=== PATIENT | male | born 1965 | race African-American/Black ===

== ENCOUNTER 2020-09-19 13:50 | Inpatient (IN) | payer OTHER ==
[2020-09-19 14:37] VITALS: BMI 30.7
[2020-09-19] MEDS ORDERED: guaiFENesin 200 MG/10 ML 10 ML UNIT-DOSE CUPS PO PRN (20:11)
[2020-09-19] MEDS ORDERED: LOPERAMIDE HCL 2 MG CAPSULE PO PRN (20:11)
[2020-09-19] MEDS ORDERED: MAGNESIUM CITRATE 300 ML BOTTLE PO PRN (20:11)
[2020-09-19] MEDS ORDERED: ACETAMINOPHEN 325 MG TABLET (FP) PO PRN (20:11)
[2020-09-19] MEDS ORDERED: MENTHOL/PHENOL 1 EACH UD MM PRN (20:11)
[2020-09-19] MEDS ORDERED: hydrOXYzine PAMOATE 25 MG CAPSULE (FP) PO PRN (20:11)
[2020-09-19] MEDS ORDERED: P-EPHED 60MG/TRIPROLIDI 2.5MG TABLET PO PRN (20:11)
[2020-09-19] MEDS ORDERED: MAGNESIUM HYDROX 2400MG/30ML ORAL SUSPENSION 30 ML CUP PO PRN (20:11)
[2020-09-19] MEDS ORDERED: IBUPROFEN 400 MG TABLET (FP) PO PRN (20:11)
[2020-09-19] MEDS ORDERED: MAG HYDROX/AL HYDROX/SIMETH 30 ML UNIT-DOSE CUP PO PRN (20:11)
[2020-09-19] MEDS ORDERED: TUBERCULIN PPD 5 TU/0.1ML VIAL ID ONE ×2 (21:56→22:18)
[2020-09-19] MEDS ORDERED: MASKS NR ONE (22:10)
[2020-09-19] MEDS: THIAMINE HCL 100 MG TABLET (FP) PO SCH (22:16)
[2020-09-19] MEDS: MELATONIN 5 MG TABLETS PO SCH (22:16)
[2020-09-20] MEDS: PRENATAL VITAMINS W/ FOLIC ACID TABLET (FP) PO SCH (09:50)
[2020-09-20] MEDS ORDERED: cloNIDine HCL 0.1 MG TABLET PO PRN (10:49)
[2020-09-20] MEDS: cloNIDine HCL 0.1 MG TABLET PO PRN (12:21)
[2020-09-21] MEDS: PRENATAL VITAMINS W/ FOLIC ACID TABLET (FP) PO SCH (09:24)
[2020-09-21] MEDS: ARIPiprazole 5 MG TABLET PO SCH (09:24)
[2020-09-21] MEDS: FLUoxetine HCL 10 MG TABLET PO SCH (09:24)
[2020-09-21 10:13] LABS: HEMATOCRIT 46.1 % (35.4-49); MCH 30.8 pg (25.7-33.7); MCHC 34.7 g/dl (32.0-35.9); MEAN CELL VOLUME 88.6 fl (80-96); MEAN PLT VOLUME 8.6 fl (7.5-11.1); PLATELET COUNT 253 K/MM3 (134-434); RBC 5.21 M/mm3 (4.00-5.60); RDW 13.5 % (11.9-15.9)
[2020-09-21 10:14] LABS: ALBUMIN 3.6 g/dl (3.4-5.0); CALCIUM 9.1 mg/dL (8.5-10.1)
[2020-09-21 10:15] LABS: BLOOD UREA NITROGEN 6.4 mg/dL (7-18)
[2020-09-21 10:16] LABS: BILIRUBIN,TOTAL 0.3 mg/dL (0.2-1); TOT PROT 7.4 g/dl (6.4-8.2)
[2020-09-21 10:19] LABS: CREATININE 0.9 mg/dL (0.55-1.3)
[2020-09-21] MEDS: ATORVASTATIN CA 40 MG TABLET (FP) PO SCH ×2 (22:56)
[2020-09-21] MEDS: DIVALPROEX NA *ER* EXTEND REL 500 MG TABLET.SA (FP) PO SCH ×2 (22:56)
[2020-09-21] MEDS: MELATONIN 5 MG TABLETS PO SCH ×2 (22:56)
[2020-09-21] MEDS: GABAPENTIN 100 MG CAPSULE PO SCH ×2 (22:57)
[2020-09-21] MEDS: THIAMINE HCL 100 MG TABLET (FP) PO SCH ×2 (22:57)
[2020-09-22] MEDS ORDERED: PT OWN MED DRAWER 7, Y5N ONE (08:12)
[2020-09-22] MEDS: ARIPiprazole 5 MG TABLET PO SCH (09:16)
[2020-09-22] MEDS: FLUoxetine HCL 10 MG TABLET PO SCH (09:16)
[2020-09-22] MEDS: PRENATAL VITAMINS W/ FOLIC ACID TABLET (FP) PO SCH (09:16)
[2020-09-22] MEDS: ATORVASTATIN CA 40 MG TABLET (FP) PO SCH (21:27)
[2020-09-22] MEDS: THIAMINE HCL 100 MG TABLET (FP) PO SCH (21:27)
[2020-09-22] MEDS: MELATONIN 5 MG TABLETS PO SCH (21:27)
[2020-09-22] MEDS: DIVALPROEX NA *ER* EXTEND REL 500 MG TABLET.SA (FP) PO SCH (21:27)
[2020-09-22] MEDS: GABAPENTIN 100 MG CAPSULE PO SCH (21:27)
[2020-09-23] MEDS ORDERED: PT OWN MED DRAWER 7, Y5N ONE (09:29)
[2020-09-23] MEDS: ARIPiprazole 5 MG TABLET PO SCH (09:42)
[2020-09-23] MEDS: cloNIDine HCL 0.1 MG TABLET PO PRN (09:43)
[2020-09-23] MEDS: FLUoxetine HCL 10 MG TABLET PO SCH (09:43)
[2020-09-23] MEDS: PRENATAL VITAMINS W/ FOLIC ACID TABLET (FP) PO SCH (09:43)
[2020-09-23 15:44] LABS: EPI CELLS 1 /uL (0-25.1); HYALINE CASTS 0 /uL (0-3.1); PH,URINE 5.5 (5.0-8.0); URINE APPEARANCE CLEAR; URINE BACTERIA 14 /uL (0-1359); URINE BILIRUBIN NEGATIVE (NEGATIVE); URINE COLOR YELLOW; URINE GLUCOSE (UA) NEGATIVE (NEGATIVE); URINE KETONE NEGATIVE (NEGATIVE); URINE LEUK ESTERASE NEGATIVE (NEGATIVE); URINE NITRITE NEGATIVE (NEGATIVE); URINE PROTEIN NEGATIVE (NEGATIVE); URINE RBC 16 /uL (0-23.9); URINE UROBILINOGEN 0.2 mg/dL (0.2-1.0); URINE WBC 2 /uL (0-25.8)
[2020-09-23] MEDS: GABAPENTIN 100 MG CAPSULE PO SCH (21:45)
[2020-09-23] MEDS: THIAMINE HCL 100 MG TABLET (FP) PO SCH (21:45)
[2020-09-23] MEDS: DIVALPROEX NA *ER* EXTEND REL 500 MG TABLET.SA (FP) PO SCH (21:45)
[2020-09-23] MEDS: MELATONIN 5 MG TABLETS PO SCH (21:45)
[2020-09-23] MEDS: ATORVASTATIN CA 40 MG TABLET (FP) PO SCH (21:45)
[2020-09-24] MEDS ORDERED: PT OWN MED DRAWER 7, Y5N ONE (09:08)
[2020-09-24] MEDS: PRENATAL VITAMINS W/ FOLIC ACID TABLET (FP) PO SCH (10:02)
[2020-09-24] MEDS: FLUoxetine HCL 10 MG TABLET PO SCH (10:02)
[2020-09-24] MEDS: ARIPiprazole 5 MG TABLET PO SCH (10:02)
[2020-09-24] MEDS: cloNIDine HCL 0.1 MG TABLET PO PRN (10:04)
[2020-09-24] MEDS: MELATONIN 5 MG TABLETS PO SCH (21:23)
[2020-09-24] MEDS: DIVALPROEX NA *ER* EXTEND REL 500 MG TABLET.SA (FP) PO SCH (21:23)
[2020-09-24] MEDS: ATORVASTATIN CA 40 MG TABLET (FP) PO SCH (21:23)
[2020-09-24] MEDS: GABAPENTIN 100 MG CAPSULE PO SCH (21:24)
[2020-09-24] MEDS: THIAMINE HCL 100 MG TABLET (FP) PO SCH (21:24)
[2020-09-25 06:06] LABS: SARS-CoV-2 NAA Not Detected (Not Detected)
[2020-09-25] MEDS ORDERED: PT OWN MED DRAWER 7, Y5N ONE ×2 (08:57→21:05)
[2020-09-25] MEDS: ARIPiprazole 5 MG TABLET PO SCH (09:57)
[2020-09-25] MEDS: PRENATAL VITAMINS W/ FOLIC ACID TABLET (FP) PO SCH (09:57)
[2020-09-25] MEDS: FLUoxetine HCL 10 MG TABLET PO SCH (09:57)
[2020-09-25] MEDS: ATORVASTATIN CA 40 MG TABLET (FP) PO SCH (21:04)
[2020-09-25] MEDS: GABAPENTIN 100 MG CAPSULE PO SCH (21:04)
[2020-09-25] MEDS: THIAMINE HCL 100 MG TABLET (FP) PO SCH (21:04)
[2020-09-25] MEDS: DIVALPROEX NA *ER* EXTEND REL 500 MG TABLET.SA (FP) PO SCH (21:06)
[2020-09-26] MEDS: PRENATAL VITAMINS W/ FOLIC ACID TABLET (FP) PO SCH (09:53)
[2020-09-26] MEDS ORDERED: COLLOIDAL OATMEAL 1 BAR EACH TP PRN (10:54)
[2020-09-26] MEDS: ATORVASTATIN CA 40 MG TABLET (FP) PO SCH (21:46)
[2020-09-26] MEDS: GABAPENTIN 100 MG CAPSULE PO SCH (21:46)
[2020-09-26] MEDS: THIAMINE HCL 100 MG TABLET (FP) PO SCH (21:46)
[2020-09-26] MEDS: DIVALPROEX NA *ER* EXTEND REL 500 MG TABLET.SA (FP) PO SCH (21:46)
[2020-09-26] MEDS: cloNIDine HCL 0.1 MG TABLET PO SCH (21:51)
[2020-09-27] MEDS: PRENATAL VITAMINS W/ FOLIC ACID TABLET (FP) PO SCH (09:43)
[2020-09-27] MEDS: cloNIDine HCL 0.1 MG TABLET PO SCH ×2 (09:43→21:18)
[2020-09-27] MEDS: GABAPENTIN 100 MG CAPSULE PO SCH (21:18)
[2020-09-27] MEDS: ATORVASTATIN CA 40 MG TABLET (FP) PO SCH (21:18)
[2020-09-27] MEDS: THIAMINE HCL 100 MG TABLET (FP) PO SCH (21:18)
[2020-09-27] MEDS: DIVALPROEX NA *ER* EXTEND REL 500 MG TABLET.SA (FP) PO SCH (21:19)
[2020-09-28] MEDS: cloNIDine HCL 0.1 MG TABLET PO SCH ×2 (09:40→21:13)
[2020-09-28] MEDS: PRENATAL VITAMINS W/ FOLIC ACID TABLET (FP) PO SCH (09:40)
[2020-09-28] MEDS: THIAMINE HCL 100 MG TABLET (FP) PO SCH (21:13)
[2020-09-28] MEDS: GABAPENTIN 100 MG CAPSULE PO SCH (21:13)
[2020-09-28] MEDS: ATORVASTATIN CA 40 MG TABLET (FP) PO SCH (21:13)
[2020-09-28] MEDS: DIVALPROEX NA *ER* EXTEND REL 500 MG TABLET.SA (FP) PO SCH (21:14)
[2020-09-29] MEDS: PRENATAL VITAMINS W/ FOLIC ACID TABLET (FP) PO SCH (09:51)
[2020-09-29] MEDS: cloNIDine HCL 0.1 MG TABLET PO SCH ×2 (09:51→21:48)
[2020-09-29] MEDS: THIAMINE HCL 100 MG TABLET (FP) PO SCH (21:48)
[2020-09-29] MEDS: ATORVASTATIN CA 40 MG TABLET (FP) PO SCH (21:48)
[2020-09-29] MEDS: DIVALPROEX NA *ER* EXTEND REL 500 MG TABLET.SA (FP) PO SCH (21:48)
[2020-09-29] MEDS: GABAPENTIN 100 MG CAPSULE PO SCH (21:48)
[2020-09-30] MEDS: cloNIDine HCL 0.1 MG TABLET PO SCH ×2 (09:43→21:25)
[2020-09-30] MEDS: PRENATAL VITAMINS W/ FOLIC ACID TABLET (FP) PO SCH (09:44)
[2020-09-30] MEDS: ATORVASTATIN CA 40 MG TABLET (FP) PO SCH (21:25)
[2020-09-30] MEDS: THIAMINE HCL 100 MG TABLET (FP) PO SCH (21:25)
[2020-09-30] MEDS: DIVALPROEX NA *ER* EXTEND REL 500 MG TABLET.SA (FP) PO SCH (21:26)
[2020-09-30] MEDS: GABAPENTIN 100 MG CAPSULE PO SCH (21:26)
[2020-10-01] MEDS: PRENATAL VITAMINS W/ FOLIC ACID TABLET (FP) PO SCH (09:56)
[2020-10-01] MEDS: cloNIDine HCL 0.1 MG TABLET PO SCH ×2 (09:56→21:23)
[2020-10-01] MEDS ORDERED: PT OWN MED DRAWER 7, Y5N ONE (19:32)
[2020-10-01] MEDS: GABAPENTIN 100 MG CAPSULE PO SCH (21:23)
[2020-10-01] MEDS: THIAMINE HCL 100 MG TABLET (FP) PO SCH (21:23)
[2020-10-01] MEDS: ATORVASTATIN CA 40 MG TABLET (FP) PO SCH (21:23)
[2020-10-01] MEDS: DIVALPROEX NA *ER* EXTEND REL 500 MG TABLET.SA (FP) PO SCH (21:23)
[2020-10-02] MEDS: PRENATAL VITAMINS W/ FOLIC ACID TABLET (FP) PO SCH (09:48)
[2020-10-02] MEDS: cloNIDine HCL 0.1 MG TABLET PO SCH ×2 (09:48→21:42)
[2020-10-02 10:07] LABS: BASO % 0.5 % (0-2.0); EOS % 3.9 % (0-4.5); HEMATOCRIT 44.5 % (35.4-49); HEMOGLOBIN 15.4 GM/dL (11.7-16.9); LYMPH % 43.5 % (8-40); MCH 30.4 pg (25.7-33.7); MCHC 34.6 g/dl (32.0-35.9); MEAN PLT VOLUME 8.7 fl (7.5-11.1); MONO % 8.3 % (3.8-10.2); NEUT % 43.8 % (42.8-82.8); PLATELET COUNT 242 K/MM3 (134-434); RBC 5.05 M/mm3 (4.00-5.60); RDW 13.2 % (11.9-15.9); WHITE BLOOD COUNT 5.6 K/mm3 (4.0-10.0)
[2020-10-02 10:26] LABS: ALBUMIN 3.6 g/dl (3.4-5.0); CALCIUM 9.4 mg/dL (8.5-10.1)
[2020-10-02 10:28] LABS: BLOOD UREA NITROGEN 9.3 mg/dL (7-18)
[2020-10-02 10:30] LABS: CREATININE 0.9 mg/dL (0.55-1.3)
[2020-10-02 10:32] LABS: BILIRUBIN,TOTAL 0.6 mg/dL (0.2-1)
[2020-10-02 10:33] LABS: TOT PROT 7.4 g/dl (6.4-8.2)
[2020-10-02] MEDS: GABAPENTIN 100 MG CAPSULE PO SCH (21:42)
[2020-10-02] MEDS: ATORVASTATIN CA 40 MG TABLET (FP) PO SCH (21:42)
[2020-10-02] MEDS: THIAMINE HCL 100 MG TABLET (FP) PO SCH (21:42)
[2020-10-02] MEDS: DIVALPROEX NA *ER* EXTEND REL 500 MG TABLET.SA (FP) PO SCH (21:44)
[2020-10-03 07:02] VITALS: TEMP 97.3
[2020-10-03] MEDS ORDERED: MASKS NR ONE (08:31)
[2020-10-03 09:30] VITALS: BP 136/84; PULSE 90
[2020-10-03] MEDS: PRENATAL VITAMINS W/ FOLIC ACID TABLET (FP) PO SCH (09:35)
[2020-10-03] MEDS: cloNIDine HCL 0.1 MG TABLET PO SCH (09:35)
== END 2020-10-03 09:40 | disposition home or self-care (01) | DRG 772 ==
LOC: YASAS 13:50 → Y3E 20:10
PROVIDERS: ADMIT Allergy & Immunology; ATTEND Allergy & Immunology
PROC: HZ42ZZZ Group Counseling for Substance Abuse Treatment, Cognitive-Behavioral (ICD-10-PCS; principal; 2020-09-19)
DX: F10.20 Alcohol dependence, uncomplicated (principal); F14.20 Cocaine dependence, uncomplicated; F12.20 Cannabis dependence, uncomplicated; F31.9 Bipolar disorder, unspecified; F43.10 Post-traumatic stress disorder, unspecified; F41.9 Anxiety disorder, unspecified; I10 Essential (primary) hypertension; E78.5 Hyperlipidemia, unspecified; R94.5 Abnormal results of liver function studies; Z62.810 Personal history of physical and sexual abuse in childhood; Z86.19 Personal history of other infectious and parasitic diseases; Z86.69 Personal history of other diseases of the nervous system and sense organs
CPT/HCPCS: 36415; 80053; 80164; 81003; 85025; 85027; 86593; 86780; 93005; 93010; C9803; J0735; U0003; U0005

== ENCOUNTER 2021-12-31 09:48 | Inpatient (IN) | payer OTHER ==
[2021-12-31 10:22] VITALS: BMI 31.0
[2021-12-31] MEDS ORDERED: MAG HYDROX/AL HYDROX/SIMETH 30 ML UNIT-DOSE CUP PO PRN (10:49)
[2021-12-31] MEDS ORDERED: ACETAMINOPHEN 325 MG TABLET (FP) PO PRN (10:49)
[2021-12-31] MEDS ORDERED: MAGNESIUM CITRATE 300 ML BOTTLE PO PRN (10:49)
[2021-12-31] MEDS ORDERED: IBUPROFEN 400 MG TABLET (FP) PO PRN (10:49)
[2021-12-31] MEDS ORDERED: MAGNESIUM HYDROX 2400MG/30ML ORAL SUSPENSION 30 ML CUP PO PRN (10:49)
[2021-12-31] MEDS ORDERED: guaiFENesin 200 MG/10 ML 10 ML UNIT-DOSE CUPS PO PRN (10:49)
[2021-12-31] MEDS ORDERED: LOPERAMIDE HCL 2 MG CAPSULE PO PRN (10:49)
[2021-12-31] MEDS ORDERED: P-EPHED 60MG/TRIPROLIDI 2.5MG TABLET PO PRN (10:49)
[2021-12-31] MEDS: PRENATAL VITAMINS W/ FOLIC ACID TABLET (FP) PO SCH (13:46)
[2021-12-31] MEDS: hydrOXYzine PAMOATE 25 MG CAPSULE (FP) PO SCH ×3 (13:46→22:05)
[2021-12-31] MEDS ORDERED: TUBERCULIN PPD 5 TU/0.1ML VIAL ID ONE (14:36)
[2021-12-31 15:19] LABS: HEMATOCRIT 45.2 % (35.4-49); HEMOGLOBIN 15.5 GM/dL (11.7-16.9); MCH 30.2 pg (25.7-33.7); MCHC 34.2 g/dl (32.0-35.9); MEAN CELL VOLUME 88.2 fl (80-96); MEAN PLT VOLUME 8.7 fl (7.5-11.1); PLATELET COUNT 253 10^3/uL (134-434); RBC 5.13 M/mm3 (4.00-5.60); RDW 13.6 % (11.9-15.9); WHITE BLOOD COUNT 4.9 K/mm3 (4.0-10.0)
[2021-12-31 15:37] LABS: ALBUMIN 3.7 g/dl (3.4-5.0); CALCIUM 8.9 mg/dL (8.5-10.1)
[2021-12-31 15:38] LABS: BLOOD UREA NITROGEN 10.1 mg/dL (7-18)
[2021-12-31 15:42] LABS: BILIRUBIN,TOTAL 0.4 mg/dL (0.2-1); CREATININE 0.9 mg/dL (0.55-1.3); TOT PROT 7.4 g/dl (6.4-8.2)
[2021-12-31 17:38] LABS: SYPHILIS W/ RPR CONF REACTIVE (NONREACTIVE)
[2021-12-31 18:45] LABS: PH,URINE 6.5 (5.0-8.0); URINE APPEARANCE CLEAR; URINE BILIRUBIN NEGATIVE (NEGATIVE); URINE COLOR YELLOW; URINE GLUCOSE (UA) NEGATIVE (NEGATIVE); URINE KETONE NEGATIVE (NEGATIVE); URINE LEUK ESTERASE NEGATIVE (NEGATIVE); URINE NITRITE NEGATIVE (NEGATIVE); URINE PROTEIN NEGATIVE (NEGATIVE); URINE UROBILINOGEN 0.2 mg/dL (0.2-1.0)
[2021-12-31] MEDS: THIAMINE HCL 100 MG TABLET (FP) PO SCH (22:05)
[2021-12-31] MEDS: MELATONIN 5 MG TABLETS PO SCH (22:05)
[2022-01-01] MEDS: hydrOXYzine PAMOATE 25 MG CAPSULE (FP) PO SCH ×5 (07:07→22:03)
[2022-01-01] MEDS: PRENATAL VITAMINS W/ FOLIC ACID TABLET (FP) PO SCH (10:44)
[2022-01-01] MEDS: MELATONIN 5 MG TABLETS PO SCH (22:03)
[2022-01-01] MEDS: THIAMINE HCL 100 MG TABLET (FP) PO SCH (22:03)
[2022-01-01] MEDS: ATORVASTATIN CA 40 MG TABLET (FP) PO SCH (22:03)
[2022-01-02] MEDS: hydrOXYzine PAMOATE 25 MG CAPSULE (FP) PO SCH ×5 (07:04→22:37)
[2022-01-02] MEDS: PRENATAL VITAMINS W/ FOLIC ACID TABLET (FP) PO SCH (10:59)
[2022-01-02] MEDS: ATORVASTATIN CA 40 MG TABLET (FP) PO SCH (22:36)
[2022-01-02] MEDS: MELATONIN 5 MG TABLETS PO SCH ×2 (22:36→23:02)
[2022-01-02] MEDS: THIAMINE HCL 100 MG TABLET (FP) PO SCH (22:37)
[2022-01-03] MEDS: hydrOXYzine PAMOATE 25 MG CAPSULE (FP) PO SCH ×4 (06:25→22:01)
[2022-01-03] MEDS: PRENATAL VITAMINS W/ FOLIC ACID TABLET (FP) PO SCH (10:30)
[2022-01-03] MEDS: THIAMINE HCL 100 MG TABLET (FP) PO SCH (22:01)
[2022-01-03] MEDS: MELATONIN 5 MG TABLETS PO SCH (22:01)
[2022-01-03] MEDS: ATORVASTATIN CA 40 MG TABLET (FP) PO SCH (22:01)
[2022-01-04] MEDS: hydrOXYzine PAMOATE 25 MG CAPSULE (FP) PO SCH ×5 (06:53→22:23)
[2022-01-04] MEDS: PRENATAL VITAMINS W/ FOLIC ACID TABLET (FP) PO SCH (10:49)
[2022-01-04] MEDS: MELATONIN 5 MG TABLETS PO SCH (22:23)
[2022-01-04] MEDS: THIAMINE HCL 100 MG TABLET (FP) PO SCH (22:23)
[2022-01-04] MEDS: ATORVASTATIN CA 40 MG TABLET (FP) PO SCH (22:23)
[2022-01-05] MEDS: hydrOXYzine PAMOATE 25 MG CAPSULE (FP) PO SCH ×5 (06:13→21:34)
[2022-01-05] MEDS: PRENATAL VITAMINS W/ FOLIC ACID TABLET (FP) PO SCH (10:30)
[2022-01-05] MEDS: MELATONIN 5 MG TABLETS PO SCH (21:34)
[2022-01-05] MEDS: THIAMINE HCL 100 MG TABLET (FP) PO SCH (21:34)
[2022-01-05] MEDS: ATORVASTATIN CA 40 MG TABLET (FP) PO SCH (21:34)
[2022-01-06] MEDS: hydrOXYzine PAMOATE 25 MG CAPSULE (FP) PO SCH ×3 (06:17→15:02)
[2022-01-06] MEDS: PRENATAL VITAMINS W/ FOLIC ACID TABLET (FP) PO SCH (10:46)
[2022-01-06] MEDS ORDERED: hydrOXYzine PAMOATE 25 MG CAPSULE (FP) PO PRN (15:02)
[2022-01-06] MEDS: ATORVASTATIN CA 40 MG TABLET (FP) PO SCH (21:44)
[2022-01-06] MEDS: MELATONIN 5 MG TABLETS PO SCH (21:44)
[2022-01-06] MEDS: THIAMINE HCL 100 MG TABLET (FP) PO SCH (21:44)
[2022-01-07] MEDS: PRENATAL VITAMINS W/ FOLIC ACID TABLET (FP) PO SCH (10:03)
[2022-01-07] MEDS: ATORVASTATIN CA 40 MG TABLET (FP) PO SCH (21:49)
[2022-01-07] MEDS: MELATONIN 5 MG TABLETS PO SCH (21:49)
[2022-01-07] MEDS: THIAMINE HCL 100 MG TABLET (FP) PO SCH (21:49)
[2022-01-08] MEDS: PRENATAL VITAMINS W/ FOLIC ACID TABLET (FP) PO SCH (10:09)
[2022-01-08] MEDS: THIAMINE HCL 100 MG TABLET (FP) PO SCH (22:53)
[2022-01-08] MEDS: ATORVASTATIN CA 40 MG TABLET (FP) PO SCH (22:53)
[2022-01-08] MEDS: MELATONIN 5 MG TABLETS PO SCH (22:53)
[2022-01-09] MEDS: PRENATAL VITAMINS W/ FOLIC ACID TABLET (FP) PO SCH (09:45)
[2022-01-09] MEDS: ATORVASTATIN CA 40 MG TABLET (FP) PO SCH (22:13)
[2022-01-09] MEDS: THIAMINE HCL 100 MG TABLET (FP) PO SCH (22:13)
[2022-01-09] MEDS: MELATONIN 5 MG TABLETS PO SCH (22:14)
[2022-01-10] MEDS: PRENATAL VITAMINS W/ FOLIC ACID TABLET (FP) PO SCH (10:29)
[2022-01-10] MEDS: THIAMINE HCL 100 MG TABLET (FP) PO SCH (21:22)
[2022-01-10] MEDS: MELATONIN 5 MG TABLETS PO SCH (21:22)
[2022-01-10] MEDS: ATORVASTATIN CA 40 MG TABLET (FP) PO SCH (21:22)
[2022-01-11] MEDS: PRENATAL VITAMINS W/ FOLIC ACID TABLET (FP) PO SCH (10:01)
[2022-01-11] MEDS: ATORVASTATIN CA 40 MG TABLET (FP) PO SCH (22:16)
[2022-01-11] MEDS: THIAMINE HCL 100 MG TABLET (FP) PO SCH (22:16)
[2022-01-11] MEDS: MELATONIN 5 MG TABLETS PO SCH (22:17)
[2022-01-12 07:28] VITALS: BP 144/99; PULSE 79; RESP 18; TEMP 97.3
[2022-01-12] MEDS: PRENATAL VITAMINS W/ FOLIC ACID TABLET (FP) PO SCH (13:22)
== END 2022-01-12 10:03 | disposition home or self-care (01) | DRG 772 ==
LOC: YASAS 09:48 → Y3W 11:43
PROVIDERS: ADMIT Allergy & Immunology; ATTEND Psychiatry & Neurology Pain Medicine
PROC: HZ42ZZZ Group Counseling for Substance Abuse Treatment, Cognitive-Behavioral (ICD-10-PCS; principal; 2021-12-31)
DX: F10.20 Alcohol dependence, uncomplicated (principal); F14.20 Cocaine dependence, uncomplicated; F12.20 Cannabis dependence, uncomplicated; F19.24 Other psychoactive substance dependence with psychoactive substance-induced mood disorder; I10 Essential (primary) hypertension; E78.5 Hyperlipidemia, unspecified; G40.909 Epilepsy, unspecified, not intractable, without status epilepticus; Z28.310 Unvaccinated for COVID-19; Z86.59 Personal history of other mental and behavioral disorders; Z62.810 Personal history of physical and sexual abuse in childhood; Z86.19 Personal history of other infectious and parasitic diseases; Z91.51 Personal history of suicidal behavior; Z56.0 Unemployment, unspecified; Z59.02 Unsheltered homelessness
CPT/HCPCS: 36415; 80053; 80164; 81003; 82962; 83036; 85027; 86593; 86780; 86803; 87811; C9803-CS; U0003; U0005